=== PATIENT | female | born 1950 | race Caucasian/White ===

== ENCOUNTER → 2018-08-08 | Outpatient (CLI) | payer MEDICARE ==
[2018-08-08 14:09] VITALS: BP 136/83; PULSE 91; TEMP 98.7; BMI 36.6
--- NOTE | 2018-08-08 14:55 | P.HPOB ---
History of Present Illness H&P Date: 08/08/18 This is a 67 year old G3 PIII with an LMP of 2001. The patient states she is not sexually active. She was feeling inside of the vagina and felt a slight ridge near the vaginal opening. She is wondering if this is normal. She is otherwise without complaints. Review of Systems She is lost about 52 pounds over the last 2 years. She states she has done this with dieting over the past year. She denies respiratory, cardiac and G.I. problems. She denies maltreatment or problems with falling. : she denies any significant problems with urinary leakage. Past Medical History Past Medical History: No Reported History Additional Past Medical History / Comment(s): Osteopenia status post 4 years use of Boniva from [id number]. PAST [employer] PERSON HISTORY: She has no history of STDs. History of Any Multi-Drug Resistant Organisms: None Reported Past Surgical History: Section (x3), Cholecystectomy, Tubal Ligation Additional Past Surgical History / Comment(s): LASIK eye surgery and foot surgery. Colonoscopy 2010. Past Psychological History: No Psychological Hx Reported Smoking Status: Never smoker Past Alcohol Use History: Occasional (1 per week) Past Drug Use History: None Reported Additional History: She has been a since 2003 and is not seeing anybody at this time. 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 - Past Family History Mother Family Medical History: Cancer (Breast cancer in her 70s.) Father Family Medical History: COPD Additional Family Medical History / Comment(s): Pulmonary hypertension. Medications and Allergies Home Medications Medication Instructions Recorded Confirmed Type No Known Home Medications 08/08/18 08/08/18 History Allergies Allergy/AdvReac Type Severity Reaction Status Date / Time No Known Allergies Allergy Unverified 08/08/18 14:07 Exam Vital Signs Temp Pulse BP 08/08/18 14:03 98.7 F 91 136/83 Intake and Output 08/07/18 08/08/18 08/08/18 22:59 06:59 14:59 Other: Weight 96.615 kg Height 5'4", weight 213 pounds, BMI 36.6. This is a well-developed well-nourished heavyset white female who is alert and oriented times 3 in no acute distress. HEENT: Within normal limits. NECK: Supple without mass or thyromegaly. CHEST AND LUNGS: Clear to auscultation. HEART: Regular rate and rhythm. BREASTS: Are without mass or discharge. AXILLARY EXAM: Negative for adenopathy. BACK: Negative for CVA tenderness. ABDOMEN: Soft, nontender, without palpable masses. PELVIC EXAM: Normal external genitalia with mild to moderate atrophy. Cervix and vagina appear normal with moderate atrophy. There is a normal hymeneal ring remininent near the introitus. There are no abnormal vaginal masses or lesions noted. There is no unusual discharge. There is no evidence of prolapse. The uterus is midposition, nongravid size and nontender. There are no palpable adnexal masses or tenderness. RECTAL EXAM: rectovaginal exam is negative for mass or tenderness and is negative for occult blood. EXTREMITIES: Nontender. IMPRESSION: 1. 67-year-old menopausal female with normal gynecologic exam. 2. History of osteopenia status post 4 years use of a bisphosphonate which was discontinued in 2008. PLAN: 1. Pap smear was performed. 2. Self breast awareness was discussed with the patient. 3. Screening mammogram will be done today. 4. Osteoporosis prevention was discussed. I have stressed the importance of adequate calcium, vitamin D and regular exercise. Recommended amounts of calcium and vitamin D were also discussed. Bone density testing will be done today. 5. I have recommended a flu shot. She states she does not get flu shots and is not interested. 6. She will return in one year.
--- NOTE | 2018-08-09 12:08 | BD ---
EXAMINATION TYPE: Axial Bone Density DATE OF EXAM: 08/08/2018 COMPARISON: NONE CLINICAL HISTORY: Height: 5 FT 4 IN Weight: 213 FRAX RISK QUESTIONS: History of Fracture in Adulthood: YES RISK FACTORS HISTORY OF: History of Wrist Fracture: YES LT When: OVER 10 YEARS Postmenopausal woman: AGE 50 Take estrogen and/or progesterone medications: TOOK HRT 5 - 6 YEARS NO LONGER MEDICATIONS: Additional Medications: NONE Additional History: EXAM MEASUREMENTS: Bone mineral densitometry was performed using the [employer] System. Bone mineral density as measured about the Lumbar spine is: ----- L1-L4(G/cm2): 1.053 T Score Values are as follows: ----- L2: -1.5 ----- L3: -1.0 ----- L4: -0.3 ----- L1-L4: -1.1 Bone mineral density has: INCREASED 1.0 % since study of: 2010 Bone mineral density about the R hip (g/cm2): 0.907 Bone mineral density about the L hip (g/cm2): 0.935 T Score values are as follows: -----R Neck: -0.9 -----L Neck: -0.7 -----R Total: -0.6 -----L Total: -0.4 Bone mineral density has: DECREASED -3.6 % since study of: 2010 IMPRESSION: Osteopenia (T Score between -2.5 and -1). There is slightly increased risk of fracture and the patient may be considered for treatment. Re-Screen 2-5 years. NOTE: T-SCORE=SD OF THE YOUNG ADULT MEAN.
--- NOTE | 2018-08-10 14:31 | MM ---
Reason for exam: screening (asymptomatic). Last mammogram was performed 2 years and 3 months ago. History: Patient is postmenopausal. Family history of breast cancer in mother at age 70. Took hormonal contraceptives for 5 years beginning at age 21. Took estrogen for 4 years beginning at age 50. Took progesterone for 4 years beginning at age 50. Physical Findings: A clinical breast exam by your physician is recommended on an annual basis and results should be correlated with mammographic findings. MG 3D Screening Mammo W/Cad Bilateral CC and MLO view(s) were taken. CV view(s) were taken of the left breast. Prior study comparison: April 27, 2016, bilateral MG screening mammo w CAD. March 30, 2011, bilateral digital screening mammo w/CAD. There are scattered fibroglandular densities. Finding: There are typically benign vascular calcifications in both breasts. No significant changes in finding since April 27, 2016 and March 30, 2011. ASSESSMENT: Benign, BI-RAD 2 RECOMMENDATION: Routine screening mammogram of both breasts in 1 year.
== END ==
LOC: WWCWWP 13:45
PROVIDERS: ATTEND Obstetrics & Gynecology
DX: Z12.31 Encounter for screening mammogram for malignant neoplasm of breast (principal); Z78.0 Asymptomatic menopausal state; M85.852 Other specified disorders of bone density and structure, left thigh; M85.851 Other specified disorders of bone density and structure, right thigh
CPT/HCPCS: 77063; 77067; 77080

== ENCOUNTER → 2018-12-05 | Outpatient (CLI) | payer MEDICARE ==
[2018-12-05 13:27] VITALS: BP 125/66; PULSE 105; RESP 16; TEMP 98.6; BMI 36.3
--- NOTE | 2018-12-05 13:56 | P.PN ---
Progress Note - Text Progress Note Date: 12/05/18 Chief Complaint: urinary symptoms for one week HPI: This is a 68 year old G3 PIII with an LMP of 2001. The patient states she developed urinary symptoms 1 week ago consisting of intermittent urinary urgency and bilateral low back ache. She denies dysuria. Urinary frequency was significantly greater yesterday. She thinks she lost about 5 pounds in one day because she urinated so frequently. When her symptoms started one week ago, she started taking Macrobid BID. She started this on her own. She states she had the pills from sometime last fall. She does not think the Macrobid helped at all. She states her urine has been slightly cloudy, but she has not noticed any blood. She is not sexually active and has not been sexually active for years. ROS: she denies fever. She denies respiratory, cardiac, or G.I. problems. PE: Blood pressure: 125/66, Height: 5'4", Weight: to 12 pounds, Temperature: 98.6, Pulse: 105. Respiratory rate 16, pulse oximeter 99%. This is a well developed, well nourished, weight female who is alert and orientedx3, in no acute distress. Abdomen: mildly obese, soft, nontender without palpable masses. Back: negative for CVA tenderness. Impression: 1. 68 year old in a positive female with urinary urgency, low back ache and urinary frequency. Differential diagnosis will include partially treated UTI and possible kidney stones. Plan: 1. Clean catch midstream urinalysis and culture with sensitivities. 2. The patient was instructed to drink lots of water and try to empty the bladder frequently and is completely as possible. 3. If evidence of UTI, consider treatment with Keflex, since she states she has done well with this. Macrobid did not seem to help and she states she had some side effects with Bactrim in the past. 4. Consider a prescription for Diflucan since she states she frequently gets used interactions when taking antibiotics. Time spent with the patient: 15 minutes.
[2018-12-06 00:58] LABS: Appearance,Urine Clear (Clear); Bilirubin,Urine Negative (Negative); Blood,Urine Negative (Negative); Color,Urine Light Yellow; Glucose,Urine (UA) Negative (Negative); Ketones,Urine Negative (Negative); Leukocyte Esterase,Urine Negative (Negative); Nitrite,Urine Negative (Negative); PH, Urine 6.5 (5.0-8.0); Protein,Urine Negative (Negative); Specific Gravity,Urine 1.005 (1.001-1.035); Urobilinogen,Urine <2.0 mg/dL (<2.0)
--- NOTE | 2018-12-06 09:52 | P.PN ---
Progress Note - Text Progress Note Date: 12/06/18 OUTPATIENT FOLLOW-UP NOTE TEST(S)/RESULTS: urinalysis from 12/05/2018 was negative. METHOD OF NOTIFICATION: a message with this result was left on the patient's voicemail. PATIENT COMMENTS: DIAGNOSIS: urinary frequency and urgency with negative urinalysis, culture pending. DISCUSSION: the patient recently completed a course of Macrobid which she took on her own from a past prescription. PLAN: we will await the urine culture. No treatment at this time.
--- NOTE | 2018-12-12 14:01 | P.PN ---
Progress Note - Text Progress Note Date: 12/12/18 OUTPATIENT FOLLOW-UP NOTE TEST(S)/RESULTS: test results from 12/05/2018 include negative urinalysis and negative urine culture. METHOD OF NOTIFICATION: a message with these results was left on the patient's voicemail. PATIENT COMMENTS: DIAGNOSIS: urine testing negative for infection. DISCUSSION: the patient had taken a course of Macrobid on her own prior to urine testing. PLAN: the patient was instructed to call if she continues to have urinary tract infection symptoms or problems.
== END ==
LOC: WWCWWP 12:55
PROVIDERS: ATTEND Obstetrics & Gynecology
DX: R35.0 Frequency of micturition (principal); R39.15 Urgency of urination
CPT/HCPCS: 81003; 87086